=== PATIENT | female | born 1945 | race Caucasian/White ===

== ENCOUNTER 2016-09-20 10:00 | Observation (INO) | payer BC ==
--- NOTE | ~2016-09-20 | HP ---
History And Physical [id number] [place]. [address] NAME: DAVID ALTAMIRANO : 47 STATUS : ADM Manny PAT#: [id number] AGE: 71 ADM/REG DATE : 09/20/16 MR#: [id number] REPORT SERV DATE: 09/21/16 DICTATED BY: EDGAR LI DATE: 09/20/16 REPORT STATUS : Draft TRANSCRIBED BY: MODL DATE: 09/20/16 DATE OF ADMISSION: 09/20/2016 PROGRAM SUPPORT CLERK: Dr. Osorio. HISTORY OF PRESENT ILLNESS: This is a 71-year-old female with known history of COPD, at least a 30-pack year history of smoking in the past. Known additional past medical history of a coronary artery bypass 10 years ago; hypertension; hyperlipidemia; previous tobacco abuse; cervical cancer, status post chemoradiation, for which apparently she has some radiation associated chronic diarrhea. She did have a nuclear stress test done in 2012 that apparently was "normal." History of atypical chest pain since, and history of right hip fracture, status post total hip arthroplasty 07/[address] Mann. The patient comes in with a least a five-week episode of increasing shortness of breath, cough that is now more mucopurulent, increased shortness of breath now, some mild orthopnea. The patient apparently was treated by her outpatient primary care doctor with an unknown antibiotic. The patient denies fevers, chills. No nausea. No vomiting. Positive chronic diarrhea. She complained that she had some pleuritic like chest pain about six weeks ago, more in the xiphoid-subxiphoid region, but no longer has such chest pain. Positive shortness of breath. PAST MEDICAL HISTORY: See above. PAST SURGICAL HISTORY: See above. ALLERGIES: APPARENTLY ARE MORPHINE AND CODEINE. THERE APPEARS TO BE DRUG INTOLERANCE. FAMILY HISTORY: Hypertension at least in one parent. SOCIAL HISTORY: At least 30-pack year history of smoking. No alcohol. No drug use. REVIEW OF SYSTEMS: Done, see HPI. Otherwise, negative. Additional family history of diabetes, heart disease. Additional social history, with two children. OBJECTIVE: VITAL SIGNS: She is 163/83, now 138 systolic; 98.2 temp; 85 pulse; 16 respirations; 89% on room air. GENERAL: No acute distress. HEENT: PERRLA. No scleral icterus. History And Physical [address] [place]. [address] NAME: DAVID ALTAMIRANO : 47 STATUS : ADM Manny PAT#: [id number] AGE: 71 ADM/REG DATE : 09/20/16 MR#: [id number] REPORT SERV DATE: 09/21/16 DICTATED BY: EDGAR IL DATE: 09/20/16 REPORT STATUS : Draft TRANSCRIBED BY: MODHari DATE: 09/20/16 CARDIOVASCULAR: Regular rate and rhythm. No murmur. RESPIRATORY: Bibasilar expiratory wheezes and coarse breath sounds. ABDOMEN: Nontender, nondistended. Positive bowel sounds. EXTREMITIES: No edema. No ecchymosis. NEURO: GCS 15. A and O x4. LABS: White count is 6.8, hemoglobin is 12.6, 178,000 platelets. BNP of 109. D-dimer 0.71, 4.1 potassium, 141 sodium, 32 bicarb, 0.69 creatinine, 12 BUN, 103 sugar. Troponin is negative. INR 1. CT of the chest did show no evidence of PE, no thoracic aortic aneurysm or dissection. Stable 8 x 7 mm noncalcified nodule, posterior right upper lobe. CT of the chest, recommendation, 12 months. Evidence of old granulomatous disease in both upper lobes, moderate stenosis in superior SVC venous collateral circulation, mediastinum; mild bilateral lower lobe bronchial wall thickening, possible bronchitis; mild to moderate upper lobe predominant emphysema, status post CABG. EKG which is normal sinus rhythm. No ischemic ST-T changes. ASSESSMENT AND PLAN: 1. Acute hypoxic respiratory failure. 2. Chronic obstructive pulmonary disease, acute exacerbation, 3 out 3 GOLD criteria. 3. Hypertension. 4. History of coronary artery disease with CABG. 5. Hyperlipidemia. 6. History of pleuritic chest pain. PLAN: We will go ahead and admit this patient. Rocephin and azithromycin. We would like to records from PCP regarding the medications that were given as an outpatient, may have had outpatient treatment failure, and needs better delineation of what to be given in the future. I will place on IV Solu-Medrol. We will place on Brovana, budesonide, and add losartan given history of CAD. Continue the home Spiriva. Diurese with Bumex, and we will trend cardiac enzymes and get an echo. If there is any chest pain that reoccurs, we will consult Cardiology if warranted based on possible echo results, cardiac enzyme trend. All questions were answered. It took well over 60 minutes to do. Reference [employer] and [employer]. WST/MODL Edgar Li DO / [id number] CC: Valdez Parker M.D. History And Physical [address] [address] NAME: DAVID ALTAMIRANO : 47 STATUS : ADM Manny PAT#: [id number] AGE: 71 ADM/REG DATE : 09/20/16 MR#: [id number] REPORT SERV DATE: 09/21/16 DICTATED BY: EDGAR LI DATE: 09/20/16 REPORT STATUS : Draft TRANSCRIBED BY: MODL DATE: 09/20/16 Ryne Li M.D.
--- NOTE | ~2016-09-20 | DS ---
Discharge Summary [facility] [address] [facility] [place]. [address] NAME: DAVID ALTAMIRANO : 47 STATUS : DIS Manny PAT#: [id number] AGE: 71 ADM/REG DATE : 09/20/16 MR#: [id number] REPORT SERV DATE: 09/22/16 DICTATED BY: DATE: REPORT STATUS : Draft TRANSCRIBED BY: MODL DATE: 09/21/16 ADMISSION DATE: 09/20/2016 DISCHARGE DATE: 09/21/2016 DISCHARGE DIAGNOSES: 1. Acute hypoxic respiratory failure. 2. Acute on chronic mixed type chronic obstructive pulmonary disease. 3. Hypertension. 4. History of coronary artery bypass graft x3, with coronary artery disease. 5. Hyperlipidemia. 6. History of tobacco abuse. 7. History of cervical cancer status post radiation with chronic diarrhea. PROCEDURES AND IMAGIN. On 09/20/2016 portable chest x-ray showed prior median sternotomy with no acute process, otherwise demonstrated. 2. On 09/20/2016 CTA of the chest showed:. a. No evidence for pulmonary embolus. No thoracic aortic aneurysm or dissection demonstrated. b. Stable 8 x 7 mm noncalcified nodule in the posterior right upper lobe. c. Evidence of old granulomatous disease involving both lungs. d. 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 e. Mild bilateral lower lobe bronchial wall thickening which may represent some bronchitis. f. Moderate upper lobe predominant emphysematous changes in the lungs. g. Status post CABG. HOSPITAL COURSE: Please refer to Dr. Bayron Lu's H and P from 09/20/2016. This is a 71-year-old female with a known history of COPD with at least a 51-[id number]-[id number] history of smoking in the past, but has not smoked for the past 10 years. The patient came in with a five-week episode of increasing shortness of breath with an increasing productive cough. The patient has been treated by outpatient PCP with two courses of doxycycline in August and two courses of 10-day steroid Dosepak, last fill date was 08/29/2016. The patient has had a non complicated hospital course. 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 The patient's ABGs upon admission pH were 7.39, pCO2 was 46, PO2 was 66, base excess is 1.4, bicarb is 26.8, O2 saturation was 92.61 on 21% O2. We are doing a home O2 eval to determine whether the patient needs oxygen with ambulation or at rest. We are discontinuing the patient's IV steroids and as the patient has had two rounds of p.o. steroids x20 days we are opting not to give her p.o. steroids. The patient's CTA of the chest showed mixed type COPD with mild to moderate emphysema and bronchitis changes. We are placing the patient on Dulera 100 mcg/5 mcg two puffs b.i.d. and albuterol nebs 2.5 mg in 3 mL four times a day p.r.n. for shortness of breath as well as the patient's home medications of Spiriva and ProAir. The patient will be having an outpatient echocardiogram to evaluate possible cardiac needs due to history of CABG x3, and coronary artery disease. The patient also has Discharge Summary [address] [address] NAME: DAVID ALTAMIRANO : 47 STATUS : DIS Manny PAT#: [id number] AGE: 71 ADM/REG DATE : 09/20/16 MR#: [id number] REPORT SERV DATE: 09/22/16 DICTATED BY: DATE: REPORT STATUS : Draft TRANSCRIBED BY: EMILIE DATE: 09/21/16 a history of hypertension which has been well controlled. The patient is on metoprolol and statin as well as aspirin for her coronary artery disease. Results of the patient's CT of the chest were discussed and the patient stated that she had previously also had pulmonary nodules and she has been watched very closely by her oncologist until he retired. The patient's procalcitonin has been less than 0.05. Her lactic acid was 1.1. Her UA was negative. BNP was 109, LDH was 387. PHYSICAL EXAMINATION: GENERAL: The patient states she is breathing much better and feeling much better today. Cough is decreased. States occasional twinge under her left breast when she takes a deep breath. VITAL SIGNS: Blood pressure is 100/59, O2 saturation is 96% on 2 L nasal cannula, temperature is 98.2, heart rate is 78, and respirations are 20. HEENT: Head is atraumatic and normocephalic. Pupils are equal, round, reactive to light. Sclerae are clear and nonicteric. NECK: Supple with no obvious thyromegaly or lymphadenopathy. CARDIAC: S1 and S2 with no obvious murmurs, rubs, or gallops. LUNGS: The patient has normal respiratory effort and scattered crackles throughout. ABDOMEN: Soft and nontender with active bowel sounds in all four quadrants. Normal bowel habitus. No palpable organomegaly. EXTREMITIES: No significant edema, clubbing, or cyanosis. Dorsalis pedis and posterior tibial pulses are equal and palpable bilaterally. MUSCULOSKELETAL: The patient moves all extremities x4. She is ambulatory without assistance. No difficulties with balance. SKIN: Skin is warm and dry with normal color and turgor. NEURO/PSYCH: The patient is alert and oriented x4, pleasant, cooperative. Cranial nerves 2 through 12 are grossly intact. DISCHARGE MEDICATIONS: 1. Aspirin 81 mg daily. 2. Atorvastatin 20 mg daily. 3. Metoprolol-XL 50 mg daily. 4. Spiriva Respimat one puff daily. 5. Albuterol two puffs q.4 hours p.r.n. 6. Acetaminophen 1000 mg q.8 hours p.r.n. 7. Diphenhydramine 50 mg q.6 hours p.r.n. 8. We have recommended for the patient to not take the Benadryl and to try Claritin or Tere or Zyrtec for her allergies. 9. Albuterol nebulizers 2.5 mg/3 mL four times daily as needed for shortness of breath. 10.Dulera 100 mcg/5 mcg two puffs twice daily. ALLERGIES: THE PATIENT IS ALLERGIC TO CODEINE AND MORPHINE WITH BLOOD PRESSURE DROPS. DISCHARGE INSTRUCTIONS: The patient is to follow up with PCP in the next five to seven days, and the patient will also have an outpatient echo done next week. If the patient is to develop any more extreme shortness of breath she should call her PCP or present to the ER. Discharge Summary [address] [place]. [address] NAME: DAVID ALTAMIRANO : 47 STATUS : DIS Manny PAT#: [id number] AGE: 71 ADM/REG DATE : 09/20/16 MR#: [id number] REPORT SERV DATE: 09/22/16 DICTATED BY: DATE: REPORT STATUS : Draft TRANSCRIBED BY: MODL DATE: 09/21/16 This discharge has taken me approximately 40 minutes coordinating discharge care of this patient including instructions with the patient and including ozuy-gs-oviw encounter and summarization of the discharge. FADI/EMILIE Migdalia Bass NP / [id number] CC: Neri Pickett M.D. Allen E Atchley, M.D.
[2016-09-20 09:38] LABS: BASOPHILS 0.4 %; BASOPHILS ABSOLUTE 0.03 10/3/uL (0.0-0.16); EOSINOPHILS 12.3 %; EOSINOPHILS ABSOLUTE 0.84 10/3/uL (0.0-0.53); ER CBC TAT 0 Hrs 03 Mins; HEMATOCRIT 38.3 % (36.0-48.0); HEMOGLOBIN 12.6 g/dL (12.0-16.0); IMMATURE GRANULOCYTES 0.3 %; IMMATURE GRANULOCYTES ABSOLUTE 0.02 10/3/uL (0.0-0.11); LYMPHOCYTES 19.7 %; LYMPHOCYTES ABSOLUTE 1.35 10/3/uL (0.67-4.30); MANUAL DIFF NO %; MEAN CORPUS HGB CONC 32.9 g/dL (32.0-36.0); MEAN CORPUSCULAR HEMOGLOB 28.6 pg (26.0-34.0); MONOCYTES 9.1 %; MONOCYTES ABSOLUTE 0.62 10/3/uL (0.21-1.20); NEUTROPHILS 58.2 %; NEUTROPHILS ABSOLUTE 3.98 10/3/uL (2.02-8.40); PLATELET COUNT 178 10/3/uL (150-400); RBC DISTRIBUTION WIDTH 14.3 % (12.0-16.0); WHITE BLOOD CELLS 6.8 10/3/uL (4.5-10.5)
[2016-09-20 09:46] LABS: PARTIAL THROMBO TIME 25.1 SEC (22.5-37.2)
[2016-09-20 09:50] LABS: D-DIMER QUANTITATIVE 0.71 ug/mLFEU (< 0.50)
[2016-09-20 09:52] LABS: INSTRUMENT SERIAL # 8087; PCO2 (CO2 TENSION) 46 MMHG (35-45); pH 7.39 (7.37-7.43)
[2016-09-20 09:53] LABS: ALLENS TEST Pos; BE (BASE EXCESS) 1.4 MEQ/L (0 +/- 2.5); CARBOXYHEMOGLOBIN 1.8 % (0-3); HCO3 (ACTUAL BICARBONATE) 26.8 MEQ/L (23-27); HEMOBLOGIN CONTENT 12.7 G/DL (12-16); METHEMOGLOBIN 0.3 % (0-3); O2 CONTENT 16.2 VOL% (18-24); PO2 (O2 TENSION) 66 MMHG (79-93); SAMPLE Arterial
[2016-09-20 09:57] LABS: BUN (BLOOD UREA NITROGEN) 12 MG/DL (6-23); CALCIUM, SERUM 8.4 MG/DL (8.5-10.4); CHEST PAIN PROFILE TAT 0 Hrs 22 Mins; CHLORIDE, SERUM 106 MMOL/L (96-112); CO2 (CARBON DIOXIDE) 32 MMOL/L (24-34); CREATININE 0.69 MG/DL (0.55-1.02); GFR AFRICAN AMERICAN 102 ML/MIN (>=60); GFR NON AFRICAN AMERICAN 88 ML/MIN (>=60); GLUCOSE, SERUM 103 MG/DL (60-99); POTASSIUM, SERUM 4.1 MMOL/L (3.5-5.3); SODIUM, SERUM 141 MMOL/L (135-148); TROPONIN I <0.02 NG/ML (<0.05)
[~2016-09-20 10:00] MED LIST: ALEVE220 MG PO; ASAB PO; C5 PO; DSS PO; FESO4 PO; HYCODAN1 M1 PO; K500 PO; LIPITOR40 PO; MVI PO; NORCO1 TA1 PO; TESS PO; TOPXL100 PO; TOPXL50 PO
[2016-09-20] MEDS ORDERED: SPIRIVA RESPIMAT INH (15:36)
[2016-09-20] MEDS ORDERED: PROAIR HFA INH (15:36)
[2016-09-20] MEDS ORDERED: ACET500CAP PO (15:37)
[2016-09-20] MEDS ORDERED: BEN25 PO (15:38)
[2016-09-20 21:09] LABS: CPK 60 U/L (0-200); TROPONIN I <0.02 NG/ML (<0.05)
[2016-09-20 21:10] LABS: CK-MB 1.2 NG/ML
[2016-09-20 21:30] LABS: ASCORBIC ACID (UR NOT ORDER) NEG (NEG); BILIRUBIN, URINE NEGATIVE (NEG); KETONE, URINE NEGATIVE (NEG); LEUKOCYTE ESTERASE(NOT OR NEG (NEG); WBC (NOT ORDERED) (RFLEX) 1 (0-5)
[2016-09-21 05:22] LABS: BASOPHILS 0 %; EOSINOPHILS 0 %; HEMOGLOBIN 13.6 g/dL (12.0-16.0); IMMATURE GRANULOCYTES 0.2 %; IMMATURE GRANULOCYTES ABSOLUTE 0.02 10/3/uL (0.0-0.11); LYMPHOCYTES ABSOLUTE 1.19 10/3/uL (0.67-4.30); MANUAL DIFF NO %; MEAN CORPUS HGB CONC 32.4 g/dL (32.0-36.0); MEAN CORPUSCULAR HEMOGLOB 28.6 pg (26.0-34.0); MEAN CORPUSCULAR VOLUME 88.2 fL (80-100); MEAN PLATELET VOLUME 9.2 fL (9.2-13.0); MONOCYTES 5.8 %; MONOCYTES ABSOLUTE 0.62 10/3/uL (0.21-1.20); NEUTROPHILS ABSOLUTE 8.94 10/3/uL (2.02-8.40); PLATELET COUNT 238 10/3/uL (150-400); RBC DISTRIBUTION WIDTH 13.9 % (12.0-16.0); RED CELL COUNT 4.76 10/6/uL (4.0-5.6); WHITE BLOOD CELLS 10.8 10/3/uL (4.5-10.5)
[2016-09-21 05:43] LABS: A/G RATIO 1.1 (0.7-1.9); ALBUMIN 3.6 G/DL (3.5-5.0); BUN (BLOOD UREA NITROGEN) 13 MG/DL (6-23); CALCIUM, SERUM 9.1 MG/DL (8.5-10.4); CHLORIDE, SERUM 101 MMOL/L (96-112); CO2 (CARBON DIOXIDE) 35 MMOL/L (24-34); CPK 57 U/L (0-200); CREATININE 0.96 MG/DL (0.55-1.02); GFR AFRICAN AMERICAN 69 ML/MIN (>=60); GFR NON AFRICAN AMERICAN 60 ML/MIN (>=60); GLOBULIN 3.3 G/DL (2.5-4.1); POTASSIUM, SERUM 4.8 MMOL/L (3.5-5.3); SGOT(AST) 14 U/L (5-40); SGPT(ALT) 19 U/L (5-65); SODIUM, SERUM 140 MMOL/L (135-148); TOTAL PROTEIN 6.9 G/DL (6.0-8.5); TROPONIN I <0.02 NG/ML (<0.05)
[2016-09-21 05:45] LABS: ALKALINE PHOSPHATASE 101 U/L (45-117); CK-MB 1.2 NG/ML; GLUCOSE, SERUM 168 MG/DL (60-99); TOTAL BILIRUBIN 1.3 MG/DL (0-1.2)
[2016-09-21 06:17] LABS: PROCALCITONIN <0.05 ng/mL (<0.5)
[2016-09-21 12:51] LABS: CK-MB 1.2 NG/ML; CPK 47 U/L (0-200); TROPONIN I <0.02 NG/ML (<0.05)
[2016-09-21] MEDS ORDERED: DULERA 100 MCG/13 GM INH (16:10)
[2016-09-21] MEDS ORDERED: ALBUTEROL0.083 % INH (16:10)
[2016-09-21] MEDS ORDERED: CLARIT10 PO (16:11)
== END 2016-09-21 16:26 | disposition home or self-care (01) ==
LOC: ER 10:00 → CDU1 16:36
PROVIDERS: Emergency Medicine; Internal Medicine
DX: J96.01 Acute respiratory failure with hypoxia (principal); J44.9 Chronic obstructive pulmonary disease, unspecified; I10 Essential (primary) hypertension; E78.5 Hyperlipidemia, unspecified; Z87.891 Personal history of nicotine dependence; Z95.1 Presence of aortocoronary bypass graft; I25.10 Atherosclerotic heart disease of native coronary artery without angina pectoris; Z79.82 Long term (current) use of aspirin; Z79.01 Long term (current) use of anticoagulants; Z88.5 Allergy status to narcotic agent; Z85.41 Personal history of malignant neoplasm of cervix uteri; Z79.899 Other long term (current) drug therapy; Z98.890 Other specified postprocedural states; Z82.49 Family history of ischemic heart disease and other diseases of the circulatory system
CPT/HCPCS: 36600; 71010; 71275; 80048; 80053; 81001; 82550; 82553; 82805; 82962; 83615; 83735; 83880; 84100; 84145; 84443; 84484; 85025; 85379; 85610; 85730; 87040; 87070; 87150; 87205; 93005; 94640; 96365; 96372; 96375; 96376; 99285; A9270-GY; G0378; J0456; J2930; Q9967